=== PATIENT | female | born 1995 | race American Indian/Alaskan Native ===

== ENCOUNTER 2019-05-02 15:25 | Emergency (ER) | payer OTHER ==
--- NOTE | 2019-05-02 16:39 | Emergency Department Report ---
Blank Doc - Documentation Documentation: 23-year-old female that presents with pelvic pain. Denies any vaginal bleeding. Stated is about 16 weeks . This initial assessment/diagnostic orders/clinical plan/treatment(s) is/are subject to change based on patient's health status, clinical progression and re-assessment by fellow clinical providers in the ED. Further treatment and workup at subsequent clinical providers discretion. Patient/guardians urged not to elope from the ED as their condition may be serious if not clinically assessed and managed. Initial orders include: 1- Patient sent to [facility] for further evaluation and treatment 2- labs 3- US OB 4- UA
[2019-05-02 21:01] LABS: Basophils % (Auto) 0.2 % (0.0-1.8); Eosinophils # (Auto) 0.3 K/mm3 (0.0-0.4); Eosinophils % (Auto) 2.6 % (0.0-4.3); Hematocrit 33.5 % (30.3-42.9); Hemoglobin 10.7 gm/dl (10.1-14.3); Lymphocytes # (Auto) 3.2 K/mm3 (1.2-5.4); Lymphocytes % (Auto) 25.6 % (13.4-35.0); Mean Corpuscular HGB Conc 32 % (30-34); Mean Corpuscular Volume 78 fl (79-97); Monocytes # (Auto) 0.4 K/mm3 (0.0-0.8); Monocytes % (Auto) 3.5 % (0.0-7.3); Platelet Count 248 K/mm3 (140-440); Red Blood Count 4.27 M/mm3 (3.65-5.03); Red Cell Distribution Width 16.4 % (13.2-15.2)
--- NOTE | 2019-05-02 21:03 | Ultrasound Report ---
OB ultrasound. 05/02/2019. HISTORY: Pelvic pain. FINDINGS: Imaging was performed transabdominally and endovaginally. A single viable intrauterine preg ilene is dated 16 weeks 0 days. Estimated weight is 143 g. heart tones are 167 bpm. Anatomic survey was not performed due to early dates. Amniotic fluid index is 8.5 cm. position is breech. The placenta is posteriorly located. Cervical length measures 4.1 cm. IMPRESSION: 1. Viable intrauterine dated 16 weeks 0 days. 2. No abnormality identified at this time. Signer Name: Serafin Pearson MD Signed: 05/02/2019 8:58 PM Workstation Name: [id number]
[2019-05-02 22:10] LABS: Bacteria,Urine 1+ /HPF (Negative); Bilirubin,Urine NEG (Negative); Blood,Urine NEG (Negative); Color,Urine Yellow (Yellow); Mucus,Urine FEW /HPF; Protein,Urine <15 mg/dL mg/dL (Negative); Urobilinogen,Urine < 2.0 mg/dL (<2.0)
--- NOTE | 2019-05-02 22:31 | Emergency Department Report ---
ED HPI - General Chief complaint: Abdominal Pain Stated complaint: 16 WKS BLEEDING/PAIN Time Seen by Provider: 05/02/19 16:38 Source: patient Mode of arrival: Wheelchair Limitations: No Limitations - History of Present Illness Initial comments: Patient is a 23-year-old female who presents the emergency room with complaints of lower abdominal cramping that began today. pt is currently 16 weeks . Her [employer] INTERN is at the [facility]. pt denies any nausea, vomiting, diarrhea, fever, chills, vaginal bleeding, vaginal discharge. This is her first . She denies any past medical history or allergies medications. - Related Data Allergies Allergy/AdvReac Type Severity Reaction Status Date / Time No Known Allergies Allergy Unverified 05/02/19 15:27 ED Review of Systems ROS: Stated complaint: 16 WKS BLEEDING/PAIN Other details as noted in HPI Comment: All other systems reviewed and negative ED Past Medical Hx - Past Medical History Previous Medical History?: Yes Hx Asthma: Yes - Surgical History Past Surgical History?: No - Social History Smoking Status: Never Smoker Substance Use Type: None ED Physical Exam - General Limitations: No Limitations General appearance: alert, in no apparent distress - Head Head exam: Present: atraumatic, normocephalic - Eye Eye exam: Present: normal appearance - ENT ENT exam: Present: mucous membranes moist - Respiratory Respiratory exam: Present: normal lung sounds bilaterally. Absent: respiratory distress, wheezes, rales, rhonchi, stridor, chest wall tenderness, accessory muscle use, decreased breath sounds, prolonged expiratory - Cardiovascular Cardiovascular Exam: Present: regular rate, normal rhythm, normal heart sounds. Absent: systolic murmur, diastolic murmur, rubs, gallop - GI/Abdominal GI/Abdominal exam: Present: soft, normal bowel sounds. Absent: distended, tenderness, guarding, rebound, rigid - Back Exam Back exam: Absent: CVA tenderness (R), CVA tenderness (L) - Neurological Exam Neurological exam: Present: alert, oriented X3 - Psychiatric Psychiatric exam: Present: normal affect, normal mood - Skin Skin exam: Present: warm, dry, intact ED Course Vital Signs 05/02/19 05/02/19 15:33 22:42 Temperature 98.0 F Pulse Rate 88 80 Respiratory 18 16 Rate Blood Pressure 112/61 Blood Pressure 124/78 [Right] O2 Sat by Pulse 100 100 Oximetry ED Medical Decision Making - Lab Data Result diagrams: 05/02/19 20:45 Lab Results 05/02/19 05/02/19 05/02/19 Range/Units 17:15 20:45 20:45 WBC 12.3 H (4.5-11.0) K/mm3 RBC 4.27 (3.65-5.03) M/mm3 Hgb 10.7 (10.1-14.3) gm/dl Hct 33.5 (30.3-42.9) % MCV 78 L (79-97) fl MCH 25 L (28-32) pg MCHC 32 (30-34) % RDW 16.4 H (13.2-15.2) % Plt Count 248 (140-440) K/mm3 Lymph % (Auto) 25.6 (13.4-35.0) % [place] % (Auto) 3.5 (0.0-7.3) % Eos % (Auto) 2.6 (0.0-4.3) % Baso % (Auto) 0.2 (0.0-1.8) % Lymph # 3.2 (1.2-5.4) K/mm3 [place] # 0.4 (0.0-0.8) K/mm3 Eos # 0.3 (0.0-0.4) K/mm3 Baso # 0.0 (0.0-0.1) K/mm3 Seg Neutrophils % 68.1 (40.0-70.0) % Seg Neutrophils # 8.4 H (1.8-7.7) K/mm3 HCG, Quant 35223 H 11374 H (0-4) mIU/mL Urine Color (Yellow) Urine Turbidity (Clear) Urine pH (5.0-7.0) Ur Specific [place] (1.003-1.030) Urine Protein (Negative) mg/dL Urine Glucose (UA) (Negative) mg/dL Urine Ketones (Negative) mg/dL Urine Blood (Negative) Urine Nitrite (Negative) Urine Bilirubin (Negative) Urine Urobilinogen (<2.0) mg/dL Ur Leukocyte Esterase (Negative) Urine WBC (Auto) (0.0-6.0) /HPF Urine RBC (Auto) (0.0-6.0) /HPF U Epithel Cells (Auto) (0-13.0) /HPF Urine Bacteria (Auto) (Negative) /HPF Urine Mucus /HPF Blood Type 05/02/19 05/02/19 Range/Units 20:45 21:19 WBC (4.5-11.0) K/mm3 RBC (3.65-5.03) M/mm3 Hgb (10.1-14.3) gm/dl Hct (30.3-42.9) % MCV (79-97) fl MCH (28-32) pg MCHC (30-34) % RDW (13.2-15.2) % Plt Count (140-440) K/mm3 Lymph % (Auto) (13.4-35.0) % [place] % (Auto) (0.0-7.3) % Eos % (Auto) (0.0-4.3) % Baso % (Auto) (0.0-1.8) % Lymph # (1.2-5.4) K/mm3 [place] # (0.0-0.8) K/mm3 Eos # (0.0-0.4) K/mm3 Baso # (0.0-0.1) K/mm3 Seg Neutrophils % (40.0-70.0) % Seg Neutrophils # (1.8-7.7) K/mm3 HCG, Quant (0-4) mIU/mL Urine Color Yellow (Yellow) Urine Turbidity Clear (Clear) Urine pH 7.0 (5.0-7.0) Ur Specific [place] 1.012 (1.003-1.030) Urine Protein <15 mg/dl (Negative) mg/dL Urine Glucose (UA) Neg (Negative) mg/dL Urine Ketones Neg (Negative) mg/dL Urine Blood Neg (Negative) Urine Nitrite Neg (Negative) Urine Bilirubin Neg (Negative) Urine Urobilinogen < 2.0 (<2.0) mg/dL Ur Leukocyte Esterase Tr (Negative) Urine WBC (Auto) 1.0 (0.0-6.0) /HPF Urine RBC (Auto) 1.0 (0.0-6.0) /HPF U Epithel Cells (Auto) 4.0 (0-13.0) /HPF Urine Bacteria (Auto) 1+ (Negative) /HPF Urine Mucus Few /HPF Blood Type O POSITIVE - Radiology Data Radiology results: report reviewed OB ultrasound. 05/02/2019. HISTORY: Pelvic pain. FINDINGS: Imaging was performed transabdominally and endovaginally. A single viable intrauterine is dated 16 weeks 0 days. Estimated weight is 143 g. heart tones are 167 bpm. Anatomic survey was not performed due to early dates. Amniotic fluid index is 8.5 cm. position is breech. The placenta is posteriorly located. Cervical length measures 4.1 cm. IMPRESSION: 1. Viable intrauterine dated 16 weeks 0 days. 2. No abnormality identified at this time. Signer Name: Serafin Pearson MD Signed: 05/02/2019 8:58 PM Workstation Name: [id number] Transcribed By: ES Dictated By: Serafin Pearson MD Electronically Authenticated By: Serafin Pearson MD Signed Date/Time: 05/02/192057 - Medical Decision Making Patient is a 23-year-old female who presents the emergency room with complaints of lower abdominal cramping that began today. pt is currently 16 weeks . Her [employer]N is at the [facility]. pt denies any nausea, vomiting, diarrhea, fever, chills, vaginal bleeding, vaginal discharge. This is her first . She denies any past medical history or allergies medications. vitals are normal. labs are stable. UA without evidence [place] [address]. OB US: 1. Viable intrauterine dated 16 weeks 0 days. 2. No abnormality identified at this time. discussed with pt please increase your water intake and take your vitamin [id number]. Please follow-up with your [employer]N in the next 2-3 days. return to the emergency room for any new or worsening symptoms. - Differential Diagnosis IUP, UTI, subchorionic hemorrhage, ovarian cyst, placenta abruption/previa Critical care attestation.: If time is entered above; I have spent that time in minutes in the direct care of this critically ill patient, excluding procedure time. ED Disposition Clinical Impression: Qualifiers: Weeks of gestation: 16 weeks Qualified Code(s): Z3A.16 - 16 weeks gestation of Abdominal pain in Qualifiers: Trimester: second trimester Qualified Code(s): O26.892 - Other specified related conditions, second trimester Disposition: DC-01 TO HOME OR SELFCARE Is pt being admited?: No Does the pt Need Aspirin: No Condition: Stable Instructions: Abdominal Pain in (ED) Additional Instructions: Please increase your water intake and take your vitamin over-the- counter. Please follow-up with your [employer]N in the next 2-3 days. return to the emergency room for any new or worsening symptoms. Referrals: your, [employer]N [Other] - 2-3 Days Forms: Work/School Release Form(ED) Time of Disposition: 22:29 Print Language: ITALIAN
[2019-05-02 22:43] VITALS: BP 124/78
== END 2019-05-02 22:42 | disposition home or self-care (01) ==
LOC: ED 15:25
DX: O26.892 Other specified pregnancy related conditions, second trimester (principal); R10.30 Lower abdominal pain, unspecified; O99.512 Diseases of the respiratory system complicating pregnancy, second trimester; J45.909 Unspecified asthma, uncomplicated; Z3A.16 16 weeks gestation of pregnancy
CPT/HCPCS: 36415; 76805; 76817; 81001; 84702; 85025; 86900; 86901